=== PATIENT | female | born 1940 | race African-American/Black ===

== ENCOUNTER → 2022-09-01 | Day surgery (SDC) | payer OTHER ==
--- NOTE | 2022-09-01 12:49 | RAD REPORT ---
EXAM DESCRIPTION: US - Guided FNA Non Breast - 09/01/2022 10:50 am CLINICAL HISTORY: E04.1 COMPARISON: No comparisons FINDINGS: Preoperative diagnosis: Left thyroid nodule. Post operative diagnosis: Same. Conscious Sedation: None Fluoroscopy time: None Contrast used: None Estimated blood loss: Minimal Specimens:5 x 25 gauge FNA samples The left thyroid was prepped and draped in the usual sterile fashion. 1% lidocaine was infiltrated in to the subcutaneous tissues for local anesthesia. Real time ultrasound scanning of the left thyroid d emonstrated circumscribed solid us and cystic nodule. Under ultrasound guidance, using using multiple 25 gauge FNA needles, 5 specimens were obtained of this lesion and sent to pathology for evaluation. There were no complications. IMPRESSION: Successful left thyroid nodule FNA procedure under ultrasound guidance.
== END ==
LOC: FNA 09:39
PROVIDERS: ATTEND Otolaryngology Facial Plastic Surgery
PROC: 0GBG3ZX Excision of Left Thyroid Gland Lobe, Percutaneous Approach, Diagnostic (ICD-10-PCS; principal; 2022-09-01)
DX: E04.1 Nontoxic single thyroid nodule (principal)
CPT/HCPCS: 88162; 88305